=== PATIENT | female | born 1970 | race Caucasian/White ===

== ENCOUNTER 2025-06-28 13:51 | Emergency (ER) | payer MEDICAID ==
[~2025-06-28] VITALS: Ht 165.1 cm; Wt 146.5 kg
[2025-06-28 14:02] VITALS: TEMP 98.5
--- NOTE | 2025-06-28 15:54 | Physician Documentation ---
History of Present Illness ~ Chief Complaint: See Chief Complaint Stated Complaint: TRACHEAL TUBE ISSUES Time Seen by MD: 14:40 HPI Patient is seen today with complaints of needing her tracheostomy tube change today. [place] care yet with any type of Respiratory therapist or nursing staff. Patient states he has needing the tracheostomy tube changed today and states the last time it was changed was about two months ago and she is having increased secretions every morning. She has no other concern or complaint at this time and denies any shortness of breath or chest pain. Medication Reconciliation Allergies: Coded Allergies: No Known Allergies (Unverified , 06/28/25) Review of Systems Constitutional: Denies: chills, fever, weakness Eyes: Denies: pain, blurred vision ENT: Denies: ear pain, nose pain, throat pain, mouth pain Respiratory: Denies: cough, shortness of breath Cardiovascular: Denies: chest pain, palpitations Gastrointestinal: Denies: abdominal pain, nausea, vomiting Genitourinary: Denies: burning, dysuria Female Genitalia: Denies: vaginal discharge, pelvic pain Neurological: Denies: headache, dizziness Musculoskeletal: Denies: pain, swelling Integumentary: Denies: rash, lesions Allergic/Immunologic: Denies: hives, itching Hematologic/Lymphatic: Denies: no symptoms reported Psychiatric: Denies: depression, anxiety Physical Exam Vital Signs: Temperature: 98.5, Source: Oral, Heart Rate: 70, Respiratory Rate: 23, BP: 141/81, Pulse Oximetry: 93, Weight: 146.530 Physical Exam General: Awake and Alert, no acute distress. HEENT: Conjunctiva pink, Sclera clear, Mucus Membranes moist. Neck: Supple without masses and tenderness. Resp: Patient does have tracheostomy in place. Unlabored. Lungs clear to auscultation bilaterally. Heart: Regular Rate and rhythm, normal S1 and S2 without murmur, rub or gallop. Abdomen: Soft and non tender no organomegaly Extremities: No cyanosis,clubbing or edema. Skin: Warm and Dry. Progress Results/Orders Results/Orders Vital Signs 06/28/25 14:02 Temp 98.5 Pulse 70 Resp 23 B/P (MAP) 141/81 Pulse Ox 93 Medical Decision Making Findings Patient is seen today with complaints of needing her tracheostomy tube change today. [place] care yet with any type of Respiratory therapist or nursing staff. Patient states he has needing the tracheostomy tube changed today and states the last time it was changed was about two months ago and she is having increased secretions every morning. She has no other concern or complaint at this time and denies any shortness of breath or chest pain. I was able to consult with Respiratory and a respiratory MD was able to come down and change her tracheostomy tube today without incident. Patient tolerated well. Patient will establish care with pulmonology and will follow up in 1-2 months for changing of her tracheostomy two. Patient will return to ED with any worsening, concerning or changing symptoms. Departure Disposition: HOME / SELF CARE / HOMELESS Impression: Primary Impression: Tracheostomy care Additional Impressions: Tracheostomy dependence Tracheostomy in place Tracheostomy malfunction Condition: Improved Additional Instructions: I was able to consult with Respiratory and a respiratory MD was able to come down and change her tracheostomy tube today without incident. Patient tolerated well. Patient will establish care with pulmonology and will follow up in 1-2 months for changing of her tracheostomy two. Patient will return to ED with any worsening, concerning or changing symptoms. Referrals: NO PRIMARY CARE PROVIDER (PCP) Signature Scribe Signature: No scribe Attestation: No scribe NAZIA COX PAC Jun 28, 2025 15:54
[2025-06-28 16:10] VITALS: PULSE 72; RESP 22; O2SAT 96
[2025-06-28 16:13] VITALS: BP 148/89; PULSE 89; RESP 18; O2SAT 98
== END 2025-06-28 16:15 | disposition home or self-care (01) ==
LOC: ER 13:52
DX: J95.03 Malfunction of tracheostomy stoma (principal)
CPT/HCPCS: 99281

== ENCOUNTER 2025-09-09 19:49 | Emergency (ER) | payer MEDICAID ==
[~2025-09-09] VITALS: Ht 165.1 cm; Wt 144.6 kg
--- NOTE | 2025-09-09 20:40 | Physician Documentation ---
HPI ~ General Chief Complaint: Tooth Problem Stated Complaint: DIFFICULT BREATHING Time Seen by MD: 20:25 Primary Medical Doctor: none History of Present Illness HPI Comment Patient presents to the emergency room with chief complaint of dental pain. Pain has been going on over the past few days and worse starting last night. She did take a [place] last night and some Tylenol today without effect. No fevers. [place] for tracheostomy change. Since that time she has been able to establish with a doctor however not a dentist. She has yet to call a dentist Medication Reconciliation Allergies: Coded Allergies: No Known Allergies (Unverified , 09/09/25) Scheduled Amoxicillin Trihydrate* (Amoxicillin*), 1 CAP PO Q12H Ondansetron 8mg ODT (Ondansetron Odt), 1 TAB PO Q6H Scheduled PRN Hydrocodone Bit/Acetaminophen 5/325 MG ([place] 5/325 MG), 1-2 TAB PO Q4-6 hours PRN for pain Review of Systems ROS All review of systems negative except as per HPI Physical Exam Vital Signs: Temperature: 99.4, Source: Oral, Heart Rate: 86, Respiratory Rate: 18, BP: 140/82, Pulse Oximetry: 95, Weight: 144.550 Physical Exam General: Patient is awake, alert, oriented x4 in mild distress Head: Normocephalic and atraumatic. Eyes: Conjunctival normal. EOMI. PERRL. ENT: Mucous membranes moist. Poor dentition. No appreciable abscess Neck: Supple, trachea is midline. Chest: Clear to auscultation bilaterally without rales, rhonchi, or wheezes. There is no accessory muscle use or retractions. Cardiac: RRR without murmurs, gallops, or rubs. Progress Progress Note Patient with the acute onset shortness of breaths while awaiting for discharge. Arrived to patient's bedside and patient appears to be having a panic attack. After some talking with her she calm down. Results/Orders Results/Orders Completed Orders - YOUNG GARCIA MD Ketorolac Trometh 15mg/Ml Vial (Toradol (09/09/25 20:35) Hydrocodone/Apap 10/325 (Princeton 10/325mg (09/09/25 20:35) Ondansetron Disint. Tablet (Zofran Odt T (09/09/25 20:35) Amoxicillin Capsule (Trimox Capsule) (09/09/25 20:35) Morphine 4mg/Ml Inj. (Morphine Inj.) (09/09/25 20:35) Medications Received in ER Medications (Trade) Dose Ordered Sig/Cameron Route PRN Reason Start Time Stop Time Status Last Admin Dose Admin (Toradol injection) 30 mg ONCE ONCE IM 09/09/25 20:35 09/09/25 20:36 DC 09/09/25 20:58 30 MG ([place] 10/325mg tab) 1 tab ONCE ONCE PO 09/09/25 20:35 09/09/25 20:36 DC 09/09/25 20:49 1 TAB (Zofran ODT tablet) 4 mg ONCE ONCE PO 09/09/25 20:35 09/09/25 20:36 DC 09/09/25 20:50 4 MG (Trimox capsule) 500 mg ONCE ONCE PO 09/09/25 20:35 09/09/25 20:36 DC 09/09/25 20:49 500 MG (morphine inj.) 4 mg ONCE ONCE IM 09/09/25 20:35 09/09/25 20:48 DC 09/09/25 20:58 4 MG Vital Signs 09/09/25 09/09/25 09/09/25 09/09/25 19:51 20:49 20:58 20:58 Temp 99.4 Pulse 86 Resp 18 18 22 22 B/P (MAP) 140/82 Pulse Ox 95 09/09/25 21:13 Temp 99.4 Pulse 75 Resp 22 B/P (MAP) 200/109 Pulse Ox 97 Medical Decision Making Additional information obtaine: old records Findings Patient presents to the emergency room for evaluation of dental pain. Differentials include but are not limited to abscess, dental caries, referred pain, TMJ, deep tissue infection. Physical exam is reassuring he had not feel patient requires labs or CT scan for investigation of deep tissue infection. The need to follow up with a dentist discussed. We have started antibiotics and pain management. Differential Dx:Considerations: Include: Alveolar fracture, Alveolar osteitis, ANUG, Facial Cellulitis, Periapical abscess, Peridontal abscess, Post-extraction bleeding, Pulpitis, Tooth avulsion, Tooth eruption, Tooth Fracture, Trigeminal neuralgia, Tooth subluxation, Other Departure Disposition: HOME / SELF CARE / HOMELESS Impression: Primary Impression: Toothache Condition: Stable Discharge Instructions: Dental Pain Referrals: NO PRIMARY CARE PROVIDER (PCP) Prescriptions Amoxicillin Trihydrate* (Amoxicillin*) 500 Mg Capsule 1 CAP PO Q12H for 10 Days, #20 CAP Prov: YOUNG GARCIA MD 09/09/25 Ondansetron 8mg ODT (Ondansetron Odt) 8 Mg Tab.rapdis 1 TAB PO Q6H for nausea/vomiting for 3 Days, #12 TAB 0 Refills Prov: YOUNG GARCIA MD 09/09/25 Hydrocodone Bit/Acetaminophen 5/325 MG ([place] 5/325 MG) 5 Mg/325 Mg Tablet 1-2 TAB PO Q4-6 hours PRN for pain, #20 TAB Prov: YOUNG GARCIA MD 09/09/25 Signature Scribe Signature: No scribe Attestation: The note accurately reflects work and decisions made by me.Young Garcia MD 09/09/25 21:16 YOUNG GARCIA MD Sep 09, 2025 20:40
[2025-09-09] MEDS ORDERED: ONDA-245 PO (20:46)
[2025-09-09] MEDS ORDERED: HYDR-3965 PO (20:46)
[2025-09-09] MEDS ORDERED: AMOX500C2 PO (20:46)
[2025-09-09] MEDS: HYDROcodone/acetaminophen 10/325mg tab PO ONE (20:49)
[2025-09-09] MEDS: ondansetron 4mg rapidly disintigrating tab PO ONE (20:50)
[2025-09-09] MEDS: ketorolac trometh 15mg/ml vial 15 MG/ML ML IM ONE (20:58)
[2025-09-09] MEDS: morphine 4 MG/ML inj SYRINge IM ONE (20:58)
[2025-09-09 21:13] VITALS: BP 200/109; PULSE 75; RESP 22; TEMP 99.4; O2SAT 97
== END 2025-09-09 21:16 | disposition home or self-care (01) ==
LOC: ER 19:50
DX: K08.89 Other specified disorders of teeth and supporting structures (principal); Z79.899 Other long term (current) drug therapy
CPT/HCPCS: 96372; 99284; J1885; J2270